=== PATIENT | female | born 1990 | race Caucasian/White ===

== ENCOUNTER 2016-11-19 18:46 | Emergency (ER) | payer OTHER ==
--- NOTE | 2016-11-19 19:06 | ED Physician Documentation ---
Sore Throat/Dental Pain - HISTORIAN Historian: patient - HPI Stated Complaint: dental pain Chief Complaint: Dental Pain Additional Information: toothache x 5 days, worse this am. No dentist appointment. - ROS CONST: no problems - PAST HX Past History: other (bipolar) Allergies/Adverse Reactions: Allergies Allergy/AdvReac Type Severity Reaction Status Date / Time No Known Allergies Allergy Verified 11/19/16 19:05 Home Medications: Ambulatory Orders Medication Instructions Recorded Etonogestrel [Nexplanon] 68 mg pe 03/25/16 Venlafaxine HCl [Effexor Xr] 75 mg PO DAILY 11/19/16 - SOCIAL HX Smoking History: cigarettes - FAMILY HX Family History: No - VITAL SIGNS Vital Signs: Vital Signs Temp Pulse Resp BP Pulse Ox 109/65 03/25/16 12:24 - REVIEWED ASSESSMENTS Nursing Assessment Reviewed: Yes Vitals Reviewed: Yes ED Results Lab/Radiology - Orders Orders: ED Orders Category Date Time Status Amoxicillin [Amoxil] Med 11/19/16 19:04 Once 500 mg PO NOW ONE Dental Pain Physical Exam - EXAM General Appearance: no acute distress, alert Head/Neck: head nml inspection, mandibular swelling (L) (<1 cm nodule at #20), cervical lymphadenopathy (1+ left ant cerv) Eyes: eyes nml inspection, PERRL Mouth/Throat: lips nml, pharynx nml, voice nml, no drooling. No: gums nml ( slight erythema ) Ear/Nose: nml inspection Respiratory: no resp. distress, breath sounds nml CVS: reg. rate & rhythm, heart sounds nml Extremities: nml ROM (gait and stance) Skin: warm/dry, normal color Neuro/Psych: No: weakness Discharge Clincal Impression: Pain, dental Additional Instructions: See the dentist as soon as possible. Take all the antibiotics as prescribed until they are completely gone. Home Medications: Ambulatory Orders Etonogestrel [Nexplanon] 68 mg pe 03/25/16 Venlafaxine HCl [Effexor Xr] 75 mg PO DAILY 11/19/16 Condition: Good Disposition: 01 HOME, SELF-CARE Decision to Admit: NO Decision Time: 19:07
[2016-11-19] MEDS: traMADol HCL 50 MG TABLET PO ONE (19:31)
[2016-11-19] MEDS: AMOXICILLIN 500 MG CAPSULE PO ONE (19:31)
[2016-11-19 19:39] VITALS: BP 125/89
== END 2016-11-19 19:32 | disposition home or self-care (01) ==
LOC: ED 18:46
DX: K02.9 Dental caries, unspecified (principal)
CPT/HCPCS: 99282

== ENCOUNTER 2016-12-27 13:41 | Outpatient (CLI) | payer OTHER ==
[2016-12-27 14:00] LABS: BASOPHILS % 0.8 (0.0-1.5); MEAN CORPUSCULAR HEMOGLOBIN 33.4 pg (28.0-34.0); MONOCYTES # 0.3 # k/uL (0.0-0.9); MONOCYTES % 4.1 % (0.0-11.0); NEUTROPHILS # 4.3 # k/uL (1.4-7.7)
[2017-01-01 06:04] LABS: METANEPHRINE UG/G CRT 73 ug/g CRT (0-300)
[2017-01-01 06:21] LABS: EPINEPHRINE UG/G CRT 10 ug/g CRT (0-20)
== END 2016-12-27 13:42 ==
LOC: LAB 13:41
PROVIDERS: ATTEND Physician Assistant
DX: R00.0 Tachycardia, unspecified (principal)
CPT/HCPCS: 36415; 81050; 82384; 83835; 85025

== ENCOUNTER 2017-01-01 14:07 | Outpatient (CLI) | payer OTHER | END 2017-01-01 14:10 | LOC: RT 14:07 | PROVIDERS: ATTEND Physician Assistant | DX: R00.0 Tachycardia, unspecified (principal) ==

== ENCOUNTER 2017-01-13 22:16 | Emergency (ER) | payer OTHER ==
[2017-01-13 23:13] VITALS: BP 119/76
== END 2017-01-13 22:30 | disposition left against medical advice (07) ==
LOC: ED 22:16
DX: T14.8 Other injury of unspecified body region (principal)
CPT/HCPCS: 99281

== ENCOUNTER 2017-01-24 06:33 | Emergency (ER) | payer OTHER ==
[2017-01-24] MEDS ORDERED: HALOPERIDOL LACTATE 5 MG/ML VIAL IM ONE ×2 (06:52)
--- NOTE | 2017-01-24 07:08 | ED Physician Documentation ---
Upper Extremity Injury - HISTORIAN Historian: patient - HPI Stated Complaint: Left Arm Pain s/p Surgery Chief Complaint: Upper Extremity Problem Additional Information: s/p orif yesterday Front/Back of Body, Lg ([place]): 1 - pain Onset: yesterday Where: other (s/p orif) Severity: severe Duration: persistent since (last night) Context: other (fracture, s/p orif) Associated Symptoms: denies: tingling, numbness distally, feeling loss, loss of power to arms Modifying Factors: pain on movement Further Comments: no - ROS CONST: no problems CVS/RESP: none NEURO: none MS/SKIN/LYMPH: other (left wrist pain) GI/: denies: problems urinating, nausea, vomiting - PAST HX Past History: Rt handed Immunizations: referred to PCP Allergies/Adverse Reactions: Allergies Allergy/AdvReac Type Severity Reaction Status Date / Time No Known Allergies Allergy Verified 01/24/17 06:46 Home Medications: Ambulatory Orders Medication Instructions Recorded Venlafaxine HCl [Effexor Xr] 75 mg PO DAILY 11/19/16 - SOCIAL HX Smoking History: cigarettes Alcohol Use: none Drug Use: none - FAMILY HX Family History: no significant history - VITAL SIGNS Vital Signs: Vital Signs Temp Pulse Resp BP Pulse Ox 98 F 88 20 128/86 99 01/24/17 06:35 01/24/17 06:35 01/24/17 06:35 01/24/17 06:35 01/24/17 06:35 - REVIEWED ASSESSMENTS Nursing Assessment Reviewed: Yes Vitals Reviewed: Yes Progress - Results/Orders Results/Orders: no testing ordered - Progress Progress: pt. given Haldol 10 mg im in er Critical Care Note - Critical Care Note Total Time (mins): 0 ED Results Lab/Radiology - Lab Results Lab Results: none ordered - Radiology Radiology Impressions: none ordered - Orders Orders: ED Orders Category Date Time Status Haloperidol Lactate [Haldol] Med 01/24/17 06:52 Discontinued 10 mg IM .STK-MED ONE Haloperidol Lactate [Haldol] Med 01/24/17 06:52 Discontinued 10 mg IM NOW ONE Upper Extremity Injury Physic - Physical Exam General Appearance: alert, severe distress Hand: normal inspection, no evidence of injury, normal ROM Wrist: bone tenderness, swelling (incision site clean and dry, minor swelling consistent with post op, neurovascular intact). No: deformity Elbow/Forearm: normal inspection, non-tender, no evidence of injury, normal ROM Shoulder: normal inspection, non-tender, no evidence of injury Neuro/Vascular/Tendon: no vascular compromise, motor nml, sensation nml Skin: warm,dry Head/ENT: nml inspection, pharynx nml Neck/Back: nml inspection, non-tender Resp/CVS: chest non-tender, breath sounds nml, heart sounds nml, no resp. distress, lungs clear, reg. rate & rhythm Abdomen: non-tender, pelvis stable Discharge Clincal Impression: Left arm pain Referrals: Poli Segura MD [Primary Care Provider] - 2 Days Home Medications: Ambulatory Orders Venlafaxine HCl [Effexor Xr] 75 mg PO DAILY 11/19/16 Comments: discharged with tizanidine 4 mg p.o. qid, vicodin to be used as per her orpthopedic surgeon Condition: Stable Disposition: HOME, SELF-CARE Decision to Admit: NO Decision Time: 07:11
[2017-01-24 07:19] VITALS: BP 118/68
== END 2017-01-24 07:16 | disposition home or self-care (01) ==
LOC: ED 06:33
DX: M79.602 Pain in left arm (principal)
CPT/HCPCS: J1630 ×2; 96372; 99283

== ENCOUNTER 2018-03-17 13:25 | Outpatient (CLI) | payer OTHER | END 2018-03-17 13:26 | LOC: LABRHC 13:25 | PROVIDERS: ATTEND Physician Assistant | DX: J02.9 Acute pharyngitis, unspecified (principal) | CPT/HCPCS: 87070 ==

== ENCOUNTER 2018-07-30 10:33 | Outpatient (CLI) | payer SELFPAY ==
[2018-07-30 11:48] LABS: eGFR (Non-African) > 60
[2018-07-30 17:01] LABS: BASO % 1.2 % (0.0-1.5); EOS % 3.9 % (0.0-6.8); LYMPH ABS # 1.83 thou/uL (0.60-4.00); MCH. 31.2 pg (28.0-34.0); MCV 91.1 fL (80.0-100.0); MONOCYTE % 5.1 % (0.0-11.0); MONOCYTE ABS # 0.31 thou/uL (0.00-0.90); PLATELET COUNT 340 thou/uL (130-400)
== END 2018-07-30 10:35 ==
LOC: LAB 10:33
PROVIDERS: ATTEND Family Medicine
DX: R21 Rash and other nonspecific skin eruption (principal); R53.83 Other fatigue; L56.8 Other specified acute skin changes due to ultraviolet radiation
CPT/HCPCS: 36415; 80053; 82607; 84443; 85025; 86038; 86140; 86225; 86235